=== PATIENT | female | born 1960 | race Native Hawaiian/Other Pacific Islander ===

== ENCOUNTER 2016-08-08 08:34 | Inpatient (IN) | payer OTHER | END 2016-09-08 08:00 | disposition still patient (30) | LOC: PAVA 08:34 | PROVIDERS: ADMIT Internal Medicine | DX: Z51.89 Encounter for other specified aftercare (principal) ==

== ENCOUNTER 2016-09-08 09:00 | Inpatient (IN) | payer OTHER | END 2016-10-09 08:35 | disposition still patient (30) | LOC: PAVA 09:00 | PROVIDERS: ADMIT Internal Medicine | DX: Z51.89 Encounter for other specified aftercare (principal) ==

== ENCOUNTER 2016-10-09 09:10 | Inpatient (IN) | payer OTHER | END 2016-11-06 08:17 | disposition still patient (30) | LOC: PAVA 09:10 | PROVIDERS: ADMIT Internal Medicine | DX: Z51.89 Encounter for other specified aftercare (principal) ==

== ENCOUNTER 2016-11-06 08:31 | Inpatient (IN) | payer OTHER | END 2016-12-07 08:01 | disposition still patient (30) | LOC: PAVA 08:31 | PROVIDERS: ADMIT Internal Medicine | DX: Z51.89 Encounter for other specified aftercare (principal) ==

== ENCOUNTER 2016-12-07 09:47 | Inpatient (IN) | payer OTHER | END 2017-01-06 08:30 | disposition still patient (30) | LOC: PAVA 09:47 | PROVIDERS: ADMIT Internal Medicine | DX: Z51.89 Encounter for other specified aftercare (principal) ==

== ENCOUNTER 2016-12-09 11:31 | Outpatient (CLI) | payer OTHER ==
[2016-12-09 12:05] LABS: PLATELET COUNT 362 K/uL (152-353)
[2016-12-09 13:02] LABS: POTASSIUM 4.5 mmol/L (3.6-5.2); SODIUM 137 mmol/L (136-145)
== END 2016-12-09 12:31 | disposition home or self-care (01) ==
LOC: LAB 11:31
PROVIDERS: Internal Medicine
DX: Z51.81 Encounter for therapeutic drug level monitoring (principal)
CPT/HCPCS: 36415; 80053; 85027

== ENCOUNTER 2016-12-30 16:03 | Outpatient (CLI) | payer OTHER | END 2016-12-30 19:34 | disposition home or self-care (01) | LOC: LAB 16:03 | DX: Z16.24 Resistance to multiple antibiotics (principal) | CPT/HCPCS: 87081 ==

== ENCOUNTER 2017-01-06 08:46 | Inpatient (IN) | payer OTHER | END 2017-02-06 08:10 | disposition still patient (30) | LOC: PAVA 08:46 | PROVIDERS: ADMIT Internal Medicine | DX: Z51.89 Encounter for other specified aftercare (principal) ==

== ENCOUNTER 2017-02-06 08:23 | Inpatient (IN) | payer OTHER | END 2017-03-08 14:57 | disposition still patient (30) | LOC: PAVA 08:23 | PROVIDERS: ADMIT Internal Medicine | DX: Z51.89 Encounter for other specified aftercare (principal) ==

== ENCOUNTER 2017-03-08 15:07 | Inpatient (IN) | payer OTHER | END 2017-04-08 08:29 | disposition still patient (30) | LOC: PAVA 15:07 | PROVIDERS: ADMIT Internal Medicine | DX: Z51.89 Encounter for other specified aftercare (principal) ==

== ENCOUNTER 2017-04-08 09:10 | Inpatient (IN) | payer OTHER | END 2017-05-09 08:10 | disposition still patient (30) | LOC: PAVA 09:10 | PROVIDERS: ADMIT Internal Medicine | DX: Z51.89 Encounter for other specified aftercare (principal) ==

== ENCOUNTER 2017-05-09 08:25 | Inpatient (IN) | payer OTHER | END 2017-06-08 09:08 | disposition still patient (30) | LOC: PAVA 08:25 | PROVIDERS: ADMIT Internal Medicine | DX: Z51.89 Encounter for other specified aftercare (principal) ==

== ENCOUNTER 2017-06-08 09:21 | Inpatient (IN) | payer OTHER | END 2017-07-09 10:24 | disposition still patient (30) | LOC: PAVA 09:21 | PROVIDERS: ADMIT Internal Medicine ==

== ENCOUNTER 2017-06-11 05:32 | Outpatient (CLI) | payer OTHER ==
[2017-06-11 06:24] LABS: POTASSIUM 4.9 mmol/L (3.6-5.2)
[2017-06-11 08:24] LABS: PLATELET COUNT 366 K/uL (152-353)
== END 2017-06-11 06:35 | disposition home or self-care (01) ==
LOC: LAB 05:32
PROVIDERS: Internal Medicine
DX: Z51.81 Encounter for therapeutic drug level monitoring (principal)
CPT/HCPCS: 36415; 80053; 85027

== ENCOUNTER 2017-06-12 12:53 | Outpatient (CLI) | payer OTHER ==
[2017-06-12 13:57] LABS: PLATELET COUNT 357 K/uL (152-353)
== END 2017-06-12 19:25 | disposition home or self-care (01) ==
LOC: LAB 12:53
PROVIDERS: Internal Medicine
DX: R05 Cough (principal); R50.9 Fever, unspecified
CPT/HCPCS: 36415; 85027

== ENCOUNTER 2017-07-09 12:21 | Inpatient (IN) | payer OTHER | END 2017-08-08 08:12 | disposition still patient (30) | LOC: PAVA 12:21 | PROVIDERS: ADMIT Internal Medicine ==

== ENCOUNTER 2017-07-29 06:01 | Outpatient (CLI) | payer OTHER | END 2017-07-29 19:00 | disposition home or self-care (01) | LOC: LAB 06:01 | DX: E55.9 Vitamin D deficiency, unspecified (principal); Z91.81 History of falling | CPT/HCPCS: 82306 ==

== ENCOUNTER 2017-08-08 08:52 | Inpatient (IN) | payer OTHER | END 2017-09-08 08:28 | disposition still patient (30) | LOC: PAVA 08:52 | PROVIDERS: ADMIT Internal Medicine ==

== ENCOUNTER 2017-08-19 18:37 | Emergency (ER) | payer OTHER ==
[~2017-08-19] VITALS: Ht 162.6 cm; Wt 54.9 kg
[2017-08-19 19:02] VITALS: TEMP 98
[2017-08-19 20:42] VITALS: BP 109/67
== END 2017-08-19 21:06 | disposition home or self-care (01) ==
LOC: ED 18:37
PROC: 0HQ1XZZ Repair Face Skin, External Approach (ICD-10-PCS; principal; 2017-08-19)
DX: S01.111A Laceration without foreign body of right eyelid and periocular area, initial encounter (principal); G31.89 Other specified degenerative diseases of nervous system; J32.9 Chronic sinusitis, unspecified; W18.39XA Other fall on same level, initial encounter; Y92.128 Other place in nursing home as the place of occurrence of the external cause
CPT/HCPCS: 90715; 96372; 99283

== ENCOUNTER 2017-09-08 09:01 | Inpatient (IN) | payer OTHER | END 2017-10-09 08:30 | disposition still patient (30) | LOC: PAVA 09:01 | PROVIDERS: ADMIT Internal Medicine ==

== ENCOUNTER 2017-10-09 09:26 | Inpatient (IN) | payer OTHER | END 2017-11-06 08:07 | disposition still patient (30) | LOC: PAVA 09:26 | PROVIDERS: ADMIT Internal Medicine ==

== ENCOUNTER 2017-11-06 08:45 | Inpatient (IN) | payer OTHER | END 2017-12-07 08:00 | disposition still patient (30) | LOC: PAVA 08:45 | PROVIDERS: ADMIT Internal Medicine ==

== ENCOUNTER 2017-12-07 09:00 | Inpatient (IN) | payer OTHER | END 2018-01-06 08:10 | disposition still patient (30) | LOC: PAVA 09:00 | PROVIDERS: ADMIT Internal Medicine ==

== ENCOUNTER 2017-12-12 10:53 | Outpatient (CLI) | payer OTHER ==
[2017-12-12 12:24] LABS: PLATELET COUNT 368 K/uL (152-353)
[2017-12-12 13:26] LABS: POTASSIUM 4.2 mmol/L (3.6-5.2)
== END 2017-12-12 20:25 | disposition home or self-care (01) ==
LOC: LAB 10:53
PROVIDERS: Internal Medicine
DX: Z79.899 Other long term (current) drug therapy (principal)
CPT/HCPCS: 36415; 80053; 85027

== ENCOUNTER 2018-01-06 08:41 | Inpatient (IN) | payer OTHER | END 2018-02-06 08:20 | disposition still patient (30) | LOC: PAVA 08:41 | PROVIDERS: ADMIT Internal Medicine ==

== ENCOUNTER 2018-01-28 09:58 | Day surgery (SDC) | payer OTHER | END 2018-01-28 10:30 | disposition home or self-care (01) | LOC: OR 09:58 | PROC: 0HQ1XZZ Repair Face Skin, External Approach (ICD-10-PCS; principal; 2018-01-28) | DX: S01.81XA Laceration without foreign body of other part of head, initial encounter (principal); W05.0XXA Fall from non-moving wheelchair, initial encounter; Y92.129 Unspecified place in nursing home as the place of occurrence of the external cause ==

== ENCOUNTER 2018-02-06 08:34 | Inpatient (IN) | payer OTHER | END 2018-03-08 14:14 | disposition still patient (30) | LOC: PAVA 08:34 | PROVIDERS: ADMIT Internal Medicine ==

== ENCOUNTER 2018-03-08 14:28 | Inpatient (IN) | payer OTHER | END 2018-04-08 08:00 | disposition still patient (30) | LOC: PAVA 14:28 | PROVIDERS: ADMIT Internal Medicine ==

== ENCOUNTER 2018-04-08 09:00 | Inpatient (IN) | payer OTHER | END 2018-05-09 09:56 | disposition still patient (30) | LOC: PAVA 09:00 | PROVIDERS: ADMIT Internal Medicine ==

== ENCOUNTER 2018-04-30 11:40 | Outpatient (CLI) | payer OTHER | END 2018-04-30 19:32 | disposition home or self-care (01) | LOC: RAD 11:40 | DX: R05 Cough (principal); R09.89 Other specified symptoms and signs involving the circulatory and respiratory systems ==

== ENCOUNTER 2018-05-09 10:07 | Inpatient (IN) | payer OTHER | END 2018-06-08 08:39 | disposition still patient (30) | LOC: PAVA 10:07 | PROVIDERS: ADMIT Internal Medicine ==

== ENCOUNTER 2018-06-08 08:53 | Inpatient (IN) | payer OTHER | END 2018-07-09 08:10 | disposition still patient (30) | LOC: PAVA 08:53 | PROVIDERS: ADMIT Internal Medicine ==

== ENCOUNTER 2018-06-11 06:52 | Outpatient (CLI) | payer OTHER ==
[2018-06-11 07:59] LABS: PLATELET COUNT 391 K/uL (152-353)
[2018-06-11 08:09] LABS: POTASSIUM 4.1 mmol/L (3.6-5.2)
== END 2018-06-11 20:31 | disposition home or self-care (01) ==
LOC: LAB 06:52
PROVIDERS: Internal Medicine
DX: Z79.899 Other long term (current) drug therapy (principal)
CPT/HCPCS: 36415; 80053; 85027

== ENCOUNTER 2018-07-09 08:23 | Inpatient (IN) | payer OTHER | END 2018-08-08 08:04 | disposition still patient (30) | LOC: PAVA 08:23 | PROVIDERS: ADMIT Internal Medicine ==

== ENCOUNTER → 2018-07-24 | Outpatient (CLI) | payer OTHER | LOC: RAD 19:42 | DX: S00.83XA Contusion of other part of head, initial encounter (principal); S50.02XA Contusion of left elbow, initial encounter; R51 Headache; M25.522 Pain in left elbow; W18.39XA Other fall on same level, initial encounter; Y92.128 Other place in nursing home as the place of occurrence of the external cause ==

== ENCOUNTER 2018-08-08 08:16 | Inpatient (IN) | payer OTHER ==
[~2018-08-08] VITALS: Ht 30.5 cm; Wt 0.5 kg
== END 2018-09-08 10:20 | disposition still patient (30) ==
LOC: PAVA 08:16
PROVIDERS: ADMIT Internal Medicine
CPT/HCPCS: J2001; J2704

== ENCOUNTER 2018-08-17 09:02 | Outpatient (CLI) | payer OTHER | END 2018-08-17 22:46 | disposition home or self-care (01) | LOC: RAD 09:02 | DX: Z78.0 Asymptomatic menopausal state (principal) ==

== ENCOUNTER 2018-08-18 15:41 | Outpatient (CLI) | payer OTHER | END 2018-08-18 15:42 | disposition short-term general hospital (02) | LOC: AMB 15:41 | DX: S01.21XA Laceration without foreign body of nose, initial encounter (principal); W05.0XXA Fall from non-moving wheelchair, initial encounter; Y93.89 Activity, other specified; Y92.89 Other specified places as the place of occurrence of the external cause | CPT/HCPCS: A0425; A0429 ==

== ENCOUNTER 2018-08-18 15:43 | Emergency (ER) | payer OTHER ==
[~2018-08-18] VITALS: Ht 162.6 cm; Wt 54.9 kg
[2018-08-18 15:43] VITALS: BP 123/69; TEMP 98.1
[2018-08-18 16:47] LABS: PLATELET COUNT 498 K/uL (152-353)
[2018-08-18 16:56] LABS: POTASSIUM 4.2 mmol/L (3.6-5.2)
== END 2018-08-18 21:12 | disposition home or self-care (01) ==
LOC: ED 15:44
PROVIDERS: Family Medicine
PROC: 0HQ1XZZ Repair Face Skin, External Approach (ICD-10-PCS; principal; 2018-08-18)
DX: S02.2XXA Fracture of nasal bones, initial encounter for closed fracture (principal); S01.21XA Laceration without foreign body of nose, initial encounter; J32.4 Chronic pansinusitis; W05.0XXA Fall from non-moving wheelchair, initial encounter; Y92.128 Other place in nursing home as the place of occurrence of the external cause
CPT/HCPCS: 36415; 80053; 85027; 99283

== ENCOUNTER 2018-09-08 10:44 | Inpatient (IN) | payer OTHER | END 2018-10-09 14:15 | disposition still patient (30) | LOC: PAVA 10:44 | PROVIDERS: ADMIT Internal Medicine ==

== ENCOUNTER 2018-10-09 14:31 | Inpatient (IN) | payer OTHER | END 2018-11-06 09:14 | disposition still patient (30) | LOC: PAVA 14:31 | PROVIDERS: ADMIT Internal Medicine ==

== ENCOUNTER 2018-11-06 09:42 | Inpatient (IN) | payer OTHER | END 2018-12-07 07:54 | disposition still patient (30) | LOC: PAVA 09:42 | PROVIDERS: ADMIT Internal Medicine ==

== ENCOUNTER 2018-12-01 14:11 | Outpatient (CLI) | payer OTHER | END 2018-12-01 21:11 | disposition home or self-care (01) | LOC: LAB 14:11 | DX: Z51.81 Encounter for therapeutic drug level monitoring (principal); E55.9 Vitamin D deficiency, unspecified | CPT/HCPCS: 82306 ==

== ENCOUNTER 2018-12-07 08:28 | Inpatient (IN) | payer OTHER | END 2019-01-06 10:39 | disposition still patient (30) | LOC: PAVA 08:28 | PROVIDERS: ADMIT Internal Medicine ==

== ENCOUNTER 2018-12-10 05:52 | Outpatient (CLI) | payer OTHER ==
[2018-12-10 06:27] LABS: PLATELET COUNT 382 K/uL (152-353)
[2018-12-10 06:43] LABS: POTASSIUM 4.7 mmol/L (3.6-5.2)
== END 2018-12-10 19:10 | disposition home or self-care (01) ==
LOC: LAB 05:52
PROVIDERS: Internal Medicine
DX: R13.10 Dysphagia, unspecified (principal); Z51.81 Encounter for therapeutic drug level monitoring; E55.9 Vitamin D deficiency, unspecified
CPT/HCPCS: 80053; 85027

== ENCOUNTER 2019-01-06 10:41 | Inpatient (IN) | payer OTHER | END 2019-02-06 08:12 | disposition still patient (30) | LOC: PAVA 10:41 | PROVIDERS: ADMIT Internal Medicine | DX: Z51.89 Encounter for other specified aftercare (principal) ==

== ENCOUNTER 2019-02-06 08:23 | Inpatient (IN) | payer OTHER | END 2019-03-08 08:28 | disposition still patient (30) | LOC: PAVA 08:23 | PROVIDERS: ADMIT Internal Medicine ==

== ENCOUNTER 2019-03-08 08:53 | Inpatient (IN) | payer OTHER | END 2019-04-08 09:07 | disposition still patient (30) | LOC: PAVA 08:53 | PROVIDERS: ADMIT Internal Medicine ==

== ENCOUNTER 2019-04-08 09:45 | Inpatient (IN) | payer OTHER | END 2019-05-09 15:57 | disposition still patient (30) | LOC: PAVA 09:45 | PROVIDERS: ADMIT Internal Medicine ==

== ENCOUNTER 2019-05-09 03:38 | Outpatient (CLI) | payer OTHER | END 2019-05-09 23:59 | disposition home or self-care (01) | LOC: LAB 03:38 | DX: E55.9 Vitamin D deficiency, unspecified (principal) | CPT/HCPCS: 82306 ==

== ENCOUNTER 2019-05-09 16:15 | Inpatient (IN) | payer OTHER | END 2019-06-08 08:04 | disposition still patient (30) | LOC: PAVA 16:15 | PROVIDERS: ADMIT Internal Medicine ==

== ENCOUNTER 2019-06-08 08:45 | Inpatient (IN) | payer OTHER | END 2019-07-09 08:51 | disposition still patient (30) | LOC: PAVA 08:45 | PROVIDERS: ADMIT Internal Medicine ==

== ENCOUNTER 2019-06-09 06:30 | Outpatient (CLI) | payer OTHER ==
[2019-06-09 07:15] LABS: PLATELET COUNT 410 K/uL (152-353)
[2019-06-09 08:01] LABS: POTASSIUM 4.4 mmol/L (3.6-5.2)
== END 2019-06-09 23:47 | disposition home or self-care (01) ==
LOC: LAB 06:30
PROVIDERS: Internal Medicine
DX: Z79.899 Other long term (current) drug therapy (principal)
CPT/HCPCS: 80053; 85027

== ENCOUNTER 2019-07-09 10:51 | Inpatient (IN) | payer OTHER | END 2019-08-08 08:00 | disposition still patient (30) | LOC: PAVA 10:51 | PROVIDERS: ADMIT Internal Medicine ==

== ENCOUNTER 2019-08-08 08:30 | Inpatient (IN) | payer OTHER | END 2019-09-08 07:59 | disposition still patient (30) | LOC: PAVA 08:30 | PROVIDERS: ADMIT Internal Medicine ==

== ENCOUNTER 2019-09-08 08:21 | Inpatient (IN) | payer OTHER | END 2019-10-09 09:30 | disposition still patient (30) | LOC: PAVA 08:21 | PROVIDERS: ADMIT Internal Medicine ==

== ENCOUNTER 2019-10-09 09:42 | Inpatient (IN) | payer OTHER | END 2019-11-07 12:44 | disposition still patient (30) | LOC: PAVA 09:42 | PROVIDERS: ADMIT Internal Medicine ==

== ENCOUNTER 2019-11-07 12:57 | Inpatient (IN) | payer OTHER | END 2019-12-08 08:57 | disposition still patient (30) | LOC: PAVA 12:57 | PROVIDERS: ADMIT Internal Medicine ==

== ENCOUNTER 2019-12-08 09:17 | Inpatient (IN) | payer OTHER ==
[2020-01-05] MEDS ORDERED: CLARINEX5 MG PO (02:14)
[2020-01-05] MEDS ORDERED: VENLAFAXINE150 M1 PO (02:15)
[2020-01-05] MEDS ORDERED: ALEN70TA19 PO (02:16)
[2020-01-05] MEDS ORDERED: MELATONIN FAST10 MG PO (02:17)
[2020-01-05] MEDS ORDERED: MIRALAX3350 N1 PO (02:19)
[2020-01-05] MEDS ORDERED: MULTIVITAMI1 PO (02:20)
[2020-01-05] MEDS ORDERED: OMEP20CA PO (02:21)
[2020-01-05] MEDS ORDERED: VITAMIN D-3400 UNIT PO (02:22)
[2020-01-05] MEDS ORDERED: 904272561 PO (02:23)
[2020-01-05] MEDS ORDERED: HEALTHY EYE1 PO (02:24)
[2020-01-05] MEDS ORDERED: MOBIC7.5 M1 PO (02:25)
[2020-01-05] MEDS ORDERED: DIAZ5TAB20 PO (02:26)
[2020-01-05] MEDS ORDERED: MAGNSUS68 PO (02:27)
[2020-01-05] MEDS ORDERED: TRANSDERM SCOP1.5 MG TD (02:29)
== END 2020-01-07 08:02 | disposition still patient (30) ==
LOC: PAVA 09:17
PROVIDERS: ADMIT Internal Medicine

== ENCOUNTER 2019-12-10 06:33 | Outpatient (CLI) | payer OTHER ==
[2019-12-10 08:16] LABS: PLATELET COUNT 359 K/uL (152-353)
[2019-12-10 08:29] LABS: POTASSIUM 4.2 mmol/L (3.6-5.2)
== END 2019-12-10 23:29 | disposition home or self-care (01) ==
LOC: LAB 06:33
PROVIDERS: Internal Medicine
DX: D64.89 Other specified anemias (principal); M85.80 Other specified disorders of bone density and structure, unspecified site; G23.0 Hallervorden-Spatz disease; M81.0 Age-related osteoporosis without current pathological fracture
CPT/HCPCS: 80053; 82306; 85027

== ENCOUNTER 2020-01-04 17:53 | Inpatient (IN) | payer OTHER ==
[2020-01-04] VITALS (10 sets, daily range): BP systolic 98–125; BP diastolic 60–78; TEMP 99–100.2; Ht 162.6 cm; Wt 53.5 kg
[~2020-01-04] VITALS: Ht 162.6 cm; Wt 53.5 kg
[2020-01-04 19:08] LABS: PLATELET COUNT 251 K/uL (152-353)
[2020-01-04 19:21] LABS: POTASSIUM 3.7 mmol/L (3.6-5.2); SODIUM 143 mmol/L (136-145)
[2020-01-05] MEDS ORDERED: CLARINEX5 MG PO (02:14)
[2020-01-05] MEDS ORDERED: VENLAFAXINE150 M1 PO (02:15)
[2020-01-05] MEDS ORDERED: ALEN70TA19 PO (02:16)
[2020-01-05] MEDS ORDERED: MELATONIN FAST10 MG PO (02:17)
[2020-01-05] MEDS ORDERED: MIRALAX3350 N1 PO (02:19)
[2020-01-05] MEDS ORDERED: MULTIVITAMI1 PO (02:20)
[2020-01-05] MEDS ORDERED: OMEP20CA PO (02:21)
[2020-01-05] MEDS ORDERED: VITAMIN D-3400 UNIT PO (02:22)
[2020-01-05] MEDS ORDERED: 904272561 PO (02:23)
[2020-01-05] MEDS ORDERED: HEALTHY EYE1 PO (02:24)
[2020-01-05] MEDS ORDERED: MOBIC7.5 M1 PO (02:25)
[2020-01-05] MEDS ORDERED: DIAZ5TAB20 PO (02:26)
[2020-01-05] MEDS ORDERED: MAGNSUS68 PO (02:27)
[2020-01-05] MEDS ORDERED: TRANSDERM SCOP1.5 MG TD (02:29)
[2020-01-05 03:45] VITALS: BP 94/67; TEMP 98.9
[2020-01-05 08:00] VITALS: BP 97/55; TEMP 98.5
[2020-01-05 12:00] VITALS: BP 92/54; TEMP 97.3
[2020-01-05 16:00] VITALS: BP 91/53; TEMP 98.8
[2020-01-05 19:00] VITALS: BP 101/59; TEMP 100.9
[2020-01-06 03:16] LABS: PLATELET COUNT 226 K/uL (152-353)
[2020-01-06 03:26] LABS: POTASSIUM 3.9 mmol/L (3.6-5.2)
[2020-01-06 04:00] VITALS: BP 101/56; TEMP 99.9
[2020-01-06 08:00] VITALS: BP 100/56; TEMP 98.1
[2020-01-06 12:00] VITALS: BP 95/65; TEMP 98.3
[2020-01-06 16:00] VITALS: BP 112/61; TEMP 100.3
[2020-01-06 20:00] VITALS: BP 100/43; TEMP 97.5
[2020-01-07] VITALS: BP 95/58; TEMP 97.9
[2020-01-07 04:00] VITALS: BP 90/62; TEMP 98.3
[2020-01-07 20:00] VITALS: BP 123/62; TEMP 98.7
[2020-01-08] VITALS (7 sets, daily range): BP systolic 82–160; BP diastolic 36–78; TEMP 97.5–100.2
[2020-01-09] VITALS (11 sets, daily range): BP systolic 13–138; BP diastolic 45–99; TEMP 97.8–98.1
== END 2020-01-09 20:31 | disposition expired | DRG 177 ==
LOC: ED 17:53 → MED/SURG 20:23 → ICU 01-09 14:35
PROVIDERS: Internal Medicine; ADMIT Family Medicine
DX: U07.1 COVID-19 (principal); J18.8 Other pneumonia, unspecified organism; K21.9 Gastro-esophageal reflux disease without esophagitis; F41.8 Other specified anxiety disorders; M15.8 Other polyosteoarthritis; R13.19 Other dysphagia
CPT/HCPCS: 36415; 36600; 80053; 82550; 82805; 83605; 83880; 84484; 85027; 87040; 87635; 93005; 94664; 94760; 99283; J0456; J1956; J2060; J2270; J3490; U0002